=== PATIENT | female | born 1975 | race Asian ===

== ENCOUNTER 2016-07-29 02:54 | Emergency (ER) | payer SELFPAY ==
[~2016-07-29] VITALS: Ht 160 cm; Wt 109.1 kg
[2016-07-29 02:56] VITALS: BP 179/104
== END 2016-07-29 03:33 | disposition left against medical advice (07) ==
LOC: EMS 02:55 → EDBD 02:55 → EMS 03:33
DX: J45.901 Unspecified asthma with (acute) exacerbation (principal); I10 Essential (primary) hypertension; F17.210 Nicotine dependence, cigarettes, uncomplicated; Z53.21 Procedure and treatment not carried out due to patient leaving prior to being seen by health care provider

== ENCOUNTER 2018-08-04 00:28 | Inpatient (IN) | payer MEDICAID ==
[~2018-08-04] VITALS: Ht 157.5 cm; Wt 90.4 kg
[2018-08-04 00:56] LABS: BASOPHILS % (AUTO) 0.6 % (0.0-2.0); HEMATOCRIT 44.2 % (36-46); HEMOGLOBIN 14.1 g/dL (12.0-16.0); LYMPHOCYTES # (AUTO) 1.6 K/uL (1.0-4.8); LYMPHOCYTES % (AUTO) 15.2 % (22.0-44.0); MEAN CORPUSCULAR HEMOGLOBIN 27.1 pg (26.0-34.0); MEAN CORPUSCULAR HGB CONC 31.8 G/dL (31.0-37.0); MEAN CORPUSCULAR VOLUME 85 fL (80-100); MONOCYTES # (AUTO) 1.1 K/uL (0.1-1.0); MONOCYTES % (AUTO) 9.9 % (2.0-9.0); NEUTROPHILS # (AUTO) 7.1 K/uL (1.8-7.7); NEUTROPHILS % (AUTO) 65.3 % (40.0-70.0); PLATELET COUNT (AUTO) 211 K/uL (150-450)
[2018-08-04 01:04] LABS: ANION GAP 8 mmol/L (8-16); CALCIUM, TOTAL 8.7 mg/dL (8.8-10.5); CARBON DIOXIDE 30 mmol/L (22-29); CHLORIDE 101 mmol/L (98-107); CREATININE 1.24 mg/dL (0.60-1.30); GLOMERULAR FILTR. RATE CALC 47 mL/min (>60); GLUCOSE,RANDOM 94 mg/dL (70-110); POTASSIUM 3.2 mmol/L (3.5-5.1); SODIUM SERUM 139 mmol/L (136-145); UREA NITROGEN, BLOOD 20 mg/dL (7-18)
[2018-08-04 01:08] LABS: PROTHROMBIN TIME 10.8 SEC (9.4-11.6)
[2018-08-04 01:15] LABS: B-TYPE NATRIURETIC PEPTIDE 1420 pg/mL (0-100)
[2018-08-04 01:29] LABS: ALANINE AMINOTRANSFERASE 36 U/L (12-78); ALKALINE PHOSPHATASE 92 U/L (46-116); ASPARTATE AMINOTRANSFERASE 30 U/L (15-37); BILIRUBIN,TOTAL 0.3 mg/dL (0.1-1.0); CREATINE KINASE, TOTAL ONLY 132 U/L (26-192); HCG,QUANTITATIVE < 1 mIU/mL (0-6); TOTAL PROTEIN, SERUM 7.5 g/dL (6.4-8.2)
[2018-08-04] MEDS ORDERED: HydrALAZINE HCL 20 MG/ML VIAL IVP ONE ×2 (01:45→03:30)
[2018-08-04] MEDS ORDERED: ASPIRIN 325 MG TABLET PO ONE (02:00)
[2018-08-04] MEDS ORDERED: METOPROLOL TARTRATE 5 MG/5 ML VIAL IVP ONE (02:45)
[2018-08-04 03:26] LABS: APPEARANCE,URINE CLOUDY (CLEAR); BILIRUBIN,URINE NEGATIVE (NEGATIVE); GLUCOSE, URINE (UA) NEGATIVE (NEGATIVE); KETONES,URINE NEGATIVE (NEGATIVE); LEUKOCYTE ESTERASE ,URINE NEGATIVE (NEGATIVE); NITRATE,URINE NEGATIVE (NEGATIVE); OCCULT BLOOD,URINE NEGATIVE (NEGATIVE); PH,URINE 5.5 (5.0-8.0); PROTEIN,URINE SEE CONFIRM (NEGATIVE); UROBILINOGEN,URINE 0.2 mg/dL (<=1.0)
[2018-08-04 03:44] LABS: SULFOSALICYLIC ACID,URINE 3+ (Negative)
[2018-08-04 03:46] LABS: BACTERIA,URINE Rare /HPF (None Seen); CALCIUM OXALATE CRYSTALS,UR Many /LPF (None Seen); RBC,URINE 0-2 /HPF (0-2); SQUAMOUS EPITHELIAL CELL,UR Few /LPF (None Seen)
[2018-08-04] MEDS ORDERED: LABETALOL HCL 200 MG in DEXTROSE 5%-WATER 160 ML IV PRN (04:13)
[2018-08-04] MEDS ORDERED: ACETAMINOPHEN 325 MG TABLET PO PRN (04:45)
[2018-08-04] MEDS ORDERED: ONDANSETRON HCL 4 MG/2 ML VIAL IVP PRN (04:45)
[2018-08-04] MEDS ORDERED: 0.9% SODIUM CHLORIDE 10 ML SYRINGE IVP PRN (04:45)
[2018-08-04 06:00] VITALS: BP 148/92
[2018-08-04 07:29] VITALS: BP 104/63
[2018-08-04] MEDS ORDERED: CefTRIAXone 1 GM/DEXTROSE 50 ML IV ONE (10:15)
[2018-08-04] MEDS ORDERED: POTASSIUM CHLORIDE 20 MEQ ER TABLET PO PRN (10:15)
[2018-08-04] MEDS ORDERED: ALBUTEROL SULFATE 2.5 MG/0.5 ML NEB SOLUTION NEB PRN (10:15)
[2018-08-04] MEDS ORDERED: MAGNESIUM HYDROXIDE SUSPENSION 30 ML UDCUP PO PRN (10:15)
[2018-08-04] MEDS ORDERED: POTASSIUM CHL 10 MEQ/WATER 50 ML IV PRN (10:15)
[2018-08-04 11:21] VITALS: BP 149/95
[2018-08-04] MEDS: ASPIRIN 81 MG CHEWABLE TABLET PO SCH (12:08)
[2018-08-04] MEDS ORDERED: SODIUM CHLORIDE 0.9% 250 ML IV ONE (12:12)
[2018-08-04] MEDS: FUROSEMIDE 20 MG/2 ML VIAL IVP SCH (13:35)
[2018-08-04 15:53] VITALS: BP 150/99
[2018-08-04] MEDS: CARVEDILOL 12.5 MG TABLET PO SCH ×2 (16:45→20:00)
[2018-08-04] MEDS: LISINOPRIL 20 MG TABLET PO SCH (16:45)
[2018-08-04] MEDS: HYDROCODONE/ACETAMINOPHEN 5-325 MG TABLET PO PRN ×2 (16:46→21:27)
[2018-08-04] MEDS: HEPARIN SODIUM,PORCINE 5,000 UNITS/ML VIAL SQ SCH (16:47)
[2018-08-04 19:34] VITALS: BP 143/79
[2018-08-04] MEDS: ACETAMINOPHEN 325 MG TABLET PO PRN (19:47)
[2018-08-04] MEDS: DOCUSATE SODIUM 100 MG CAPSULE PO SCH (20:00)
[2018-08-04 20:37] LABS: AMPHET/METH SCREEN,URINE POSITIVE (NEGATIVE); BARBITURATE SCREEN, URINE NEGATIVE (NEGATIVE); BENZODIAZEPINES SCREEN,URINE NEGATIVE (NEGATIVE); CANNABINOID SCREEN,URINE NEGATIVE (NEGATIVE); COCAINE SCREEN,URINE NEGATIVE (NEGATIVE); METHADONE SCREEN, URINE NEGATIVE (NEGATIVE); OPIATE SCREEN,URINE NEGATIVE (NEGATIVE)
[2018-08-04 20:38] LABS: PHENCYCLIDINE SCREEN,URINE NEGATIVE (NEGATIVE)
[2018-08-04] MEDS: BENZOCAINE 10% 7 GM GEL TP PRN (22:33)
[2018-08-04 23:18] VITALS: BP 132/75
[2018-08-05] VITALS (7 sets, daily range): BP systolic 149–168; BP diastolic 84–110
[2018-08-05] MEDS: HEPARIN SODIUM,PORCINE 5,000 UNITS/ML VIAL SQ SCH ×3 (00:10→15:55)
[2018-08-05] MEDS: HYDROCODONE/ACETAMINOPHEN 5-325 MG TABLET PO PRN ×2 (04:24→15:58)
[2018-08-05] MEDS: BENZOCAINE 10% 7 GM GEL TP PRN ×3 (05:26→23:35)
[2018-08-05] MEDS: IBUPROFEN 600 MG TABLET PO PRN (05:29)
[2018-08-05 06:31] LABS: BASOPHILS % (AUTO) 0.6 % (0.0-2.0); HEMATOCRIT 41.1 % (36-46); HEMOGLOBIN 13.3 g/dL (12.0-16.0); LYMPHOCYTES # (AUTO) 1.3 K/uL (1.0-4.8); LYMPHOCYTES % (AUTO) 15.6 % (22.0-44.0); MEAN CORPUSCULAR HEMOGLOBIN 27.4 pg (26.0-34.0); MEAN CORPUSCULAR HGB CONC 32.4 G/dL (31.0-37.0); MEAN CORPUSCULAR VOLUME 85 fL (80-100); MONOCYTES # (AUTO) 0.7 K/uL (0.1-1.0); MONOCYTES % (AUTO) 8.8 % (2.0-9.0); NEUTROPHILS # (AUTO) 5.2 K/uL (1.8-7.7); PLATELET COUNT (AUTO) 192 K/uL (150-450); RED BLOOD CELL COUNT(AUTO) 4.86 MIL/uL (4.00-5.20)
[2018-08-05 06:52] LABS: ALANINE AMINOTRANSFERASE 30 U/L (12-78); ALBUMIN 2.6 g/dL (3.4-5.0); ALKALINE PHOSPHATASE 74 U/L (46-116); ANION GAP 5 mmol/L (8-16); ASPARTATE AMINOTRANSFERASE 26 U/L (15-37); BILIRUBIN,TOTAL 0.6 mg/dL (0.1-1.0); CALCIUM, TOTAL 8.6 mg/dL (8.8-10.5); CARBON DIOXIDE 28 mmol/L (22-29); CHLORIDE 101 mmol/L (98-107); CREATININE 0.89 mg/dL (0.60-1.30); GLOMERULAR FILTR. RATE CALC > 60 mL/min (>60); GLUCOSE,RANDOM 96 mg/dL (70-110); SODIUM SERUM 134 mmol/L (136-145); TOTAL PROTEIN, SERUM 6.7 g/dL (6.4-8.2); UREA NITROGEN, BLOOD 20 mg/dL (7-18)
[2018-08-05] MEDS: LISINOPRIL 20 MG TABLET PO SCH (08:22)
[2018-08-05] MEDS: DOCUSATE SODIUM 100 MG CAPSULE PO SCH ×2 (08:22→20:04)
[2018-08-05] MEDS: FAMOTIDINE 20 MG TABLET PO SCH (08:22)
[2018-08-05] MEDS: ASPIRIN 81 MG CHEWABLE TABLET PO SCH (08:22)
[2018-08-05] MEDS: CARVEDILOL 12.5 MG TABLET PO SCH (08:23)
[2018-08-05] MEDS: FUROSEMIDE 20 MG/2 ML VIAL IVP SCH (08:26)
[2018-08-05] MEDS: CARVEDILOL 25 MG TABLET PO SCH (20:04)
[2018-08-06] MEDS: HEPARIN SODIUM,PORCINE 5,000 UNITS/ML VIAL SQ SCH ×3 (00:48→16:36)
[2018-08-06] MEDS: IBUPROFEN 600 MG TABLET PO PRN (00:50)
[2018-08-06 04:08] VITALS: BP 143/106
[2018-08-06 06:10] LABS: BASOPHILS % (AUTO) 0.3 % (0.0-2.0); EOSINOPHILS % (AUTO) 9.1 % (1.0-6.0); HEMATOCRIT 40.6 % (36-46); LYMPHOCYTES # (AUTO) 1.5 K/uL (1.0-4.8); LYMPHOCYTES % (AUTO) 15.2 % (22.0-44.0); MEAN CORPUSCULAR HEMOGLOBIN 27.2 pg (26.0-34.0); MEAN CORPUSCULAR VOLUME 85 fL (80-100); MONOCYTES # (AUTO) 0.8 K/uL (0.1-1.0); MONOCYTES % (AUTO) 7.6 % (2.0-9.0); NEUTROPHILS # (AUTO) 6.7 K/uL (1.8-7.7); NEUTROPHILS % (AUTO) 67.8 % (40.0-70.0); PLATELET COUNT (AUTO) 185 K/uL (150-450); RED BLOOD CELL COUNT(AUTO) 4.77 MIL/uL (4.00-5.20); RED CELL DISTRIBUTION WIDTH 15.8 % (11.5-14.5)
[2018-08-06 06:56] LABS: ALANINE AMINOTRANSFERASE 25 U/L (12-78); ALBUMIN 2.5 g/dL (3.4-5.0); ALKALINE PHOSPHATASE 66 U/L (46-116); ANION GAP 3 mmol/L (8-16); ASPARTATE AMINOTRANSFERASE 20 U/L (15-37); BILIRUBIN,TOTAL 0.5 mg/dL (0.1-1.0); CALCIUM, TOTAL 8.5 mg/dL (8.8-10.5); CARBON DIOXIDE 29 mmol/L (22-29); CHLORIDE 103 mmol/L (98-107); CREATININE 0.71 mg/dL (0.60-1.30); GLOMERULAR FILTR. RATE CALC > 60 mL/min (>60); GLUCOSE,RANDOM 87 mg/dL (70-110); POTASSIUM 4.4 mmol/L (3.5-5.1); SODIUM SERUM 135 mmol/L (136-145); TOTAL PROTEIN, SERUM 6.4 g/dL (6.4-8.2); UREA NITROGEN, BLOOD 22 mg/dL (7-18)
[2018-08-06] MEDS: CARVEDILOL 25 MG TABLET PO SCH ×2 (08:24→20:38)
[2018-08-06] MEDS: FAMOTIDINE 20 MG TABLET PO SCH (08:25)
[2018-08-06] MEDS: DOCUSATE SODIUM 100 MG CAPSULE PO SCH ×2 (08:25→20:38)
[2018-08-06] MEDS: ASPIRIN 81 MG CHEWABLE TABLET PO SCH (08:25)
[2018-08-06] MEDS: LISINOPRIL 20 MG TABLET PO SCH (08:26)
[2018-08-06] MEDS: FUROSEMIDE 20 MG/2 ML VIAL IVP SCH (08:27)
[2018-08-06 09:23] VITALS: BP 156/95
[2018-08-06] MEDS: AmLODIPine BESYLATE 5 MG TABLET PO SCH (11:40)
[2018-08-06 11:42] VITALS: BP 133/89
[2018-08-06 15:45] VITALS: BP 151/92
[2018-08-06] MEDS: HYDROCODONE/ACETAMINOPHEN 5-325 MG TABLET PO PRN (16:36)
[2018-08-06 19:35] VITALS: BP 121/61
[2018-08-06 23:27] VITALS: BP 137/93
[2018-08-07] MEDS: HEPARIN SODIUM,PORCINE 5,000 UNITS/ML VIAL SQ SCH ×5 (00:53→23:30)
[2018-08-07] MEDS: ACETAMINOPHEN 325 MG TABLET PO PRN (00:56)
[2018-08-07 03:33] VITALS: BP 146/89
[2018-08-07 07:10] VITALS: BP 153/99
[2018-08-07] MEDS: FUROSEMIDE 20 MG/2 ML VIAL IVP SCH (08:20)
[2018-08-07] MEDS: DOCUSATE SODIUM 100 MG CAPSULE PO SCH ×2 (08:21→20:46)
[2018-08-07] MEDS: FAMOTIDINE 20 MG TABLET PO SCH (08:21)
[2018-08-07] MEDS: ASPIRIN 81 MG CHEWABLE TABLET PO SCH (08:21)
[2018-08-07] MEDS: CARVEDILOL 25 MG TABLET PO SCH ×2 (08:22→20:46)
[2018-08-07 11:04] VITALS: BP 132/64
[2018-08-07] MEDS: AmLODIPine BESYLATE 5 MG TABLET PO SCH (11:14)
[2018-08-07] MEDS: LISINOPRIL 20 MG TABLET PO SCH (11:14)
[2018-08-07 15:12] VITALS: BP 140/92
[2018-08-07 20:16] VITALS: BP 155/87
[2018-08-07 23:30] VITALS: BP 152/93
[2018-08-08 03:59] VITALS: BP 148/85
[2018-08-08 07:10] VITALS: BP 165/83
[2018-08-08] MEDS: HEPARIN SODIUM,PORCINE 5,000 UNITS/ML VIAL SQ SCH (08:00)
[2018-08-08] MEDS: FUROSEMIDE 20 MG/2 ML VIAL IVP SCH (09:00)
[2018-08-08] MEDS: AmLODIPine BESYLATE 5 MG TABLET PO SCH (09:04)
[2018-08-08] MEDS: DOCUSATE SODIUM 100 MG CAPSULE PO SCH (09:04)
[2018-08-08] MEDS: CARVEDILOL 25 MG TABLET PO SCH (09:04)
[2018-08-08] MEDS: LISINOPRIL 20 MG TABLET PO SCH (09:04)
[2018-08-08] MEDS: FAMOTIDINE 20 MG TABLET PO SCH (09:04)
[2018-08-08] MEDS: ASPIRIN 81 MG CHEWABLE TABLET PO SCH (09:04)
[2018-08-08] MEDS ORDERED: AMLO5TAB66 PO (11:34)
[2018-08-08] MEDS ORDERED: ASPI81TA39 PO (11:34)
[2018-08-08] MEDS ORDERED: LISI40TA4 PO (11:35)
[2018-08-08] MEDS ORDERED: FURO-152 PO (11:36)
== END 2018-08-08 11:40 | disposition home or self-care (01) | DRG 194 ==
LOC: EMS 00:29 → UNDOADMIN 04:21 → ICU 04:21 → 5S 05:11
PROVIDERS: ADMIT Internal Medicine; ATTEND Internal Medicine
DX: I11.0 Hypertensive heart disease with heart failure (principal); G93.41 Metabolic encephalopathy; F33.2 Major depressive disorder, recurrent severe without psychotic features; I42.9 Cardiomyopathy, unspecified; I24.8 Other forms of acute ischemic heart disease; J44.1 Chronic obstructive pulmonary disease with (acute) exacerbation; R45.851 Suicidal ideations; I50.21 Acute systolic (congestive) heart failure; E66.9 Obesity, unspecified; F17.210 Nicotine dependence, cigarettes, uncomplicated; J44.9 Chronic obstructive pulmonary disease, unspecified; F19.10 Other psychoactive substance abuse, uncomplicated; F15.10 Other stimulant abuse, uncomplicated; F41.9 Anxiety disorder, unspecified; Z88.0 Allergy status to penicillin; Z91.19 Patient's noncompliance with other medical treatment and regimen; Z59.0 Homelessness; Z88.8 Allergy status to other drugs, medicaments and biological substances; Z91.14 Patient's other noncompliance with medication regimen
CPT/HCPCS: 80307; 84132; 93005; 93306; 99291; G0378; J0360; J0696; J1644; J1940; J3490; J7050; J7060